=== PATIENT | female | born 1985 | race Caucasian/White ===

== ENCOUNTER 2019-10-11 08:56 | Inpatient (IN) | payer OTHER ==
[~2019-10-11] VITALS: Ht 172.7 cm; Wt 78.0 kg
[2019-10-16] MEDS: D5%-LACTATED RINGERS 1,000 ML IV SCH ×3 (06:14→22:14)
[2019-10-16] MEDS ORDERED: OXYTOCIN 30U/ 0.9% NaCL 500ML 500 ML IV ONE (06:14)
[2019-10-16] MEDS ORDERED: SODIUM CHLORIDE FLUSH 10ML SYR IVF PRN (06:30)
[2019-10-16] MEDS ORDERED: FENTANYL PF 100 MCG/2ML IVPush PRN (06:30)
[2019-10-16] MEDS ORDERED: PLEASE ENTER HEIGHT AND WEIGHT MC SCH (06:30)
[2019-10-16] MEDS ORDERED: METOCLOPRAMIDE 5 MG/ML, 2ML IVPush PRN (06:30)
[2019-10-16] MEDS ORDERED: ONDANSETRON 2MG/ML, 2ML IVPush PRN (06:30)
[2019-10-16] MEDS ORDERED: TERBUTALINE 1 MG/ML, 1ML SQ PRN (06:30)
[2019-10-16] MEDS ORDERED: TERBUTALINE 1 MG/ML, 1ML IVPush PRN (06:30)
[2019-10-16] MEDS ORDERED: FENTANYL PF 100 MCG/2ML IV PRN (06:30)
[2019-10-16] MEDS ORDERED: ALUMINUM/MAG/SIMETHICONE 30 ML UDC PO PRN (06:30)
[2019-10-16] MEDS ORDERED: SODIUM CITRATE/CITRIC ACID 30 ML UDC PO PRN (06:30)
[2019-10-16 06:34] VITALS: BP 104/64
[2019-10-16 06:44] LABS: BASOPHILS # (AUTO) 0.01 x10^3/uL (0-0.1); BASOPHILS % (AUTO) 0 % (0-1); EOSINOPHILS # (AUTO) 0.39 x10^3/uL (0-0.4); EOSINOPHILS % (AUTO) 3 % (1-7); LYMPHOCYTES # (AUTO) 2.03 x10^3/uL (1-3.4); LYMPHOCYTES % (AUTO) 15 % (22-44); MD NO; MEAN CORPUSCULAR HEMOGLOBIN 28.1 pg (27.0-34.8); MEAN CORPUSCULAR VOLUME 85.1 fL (80-100); MEAN PLATELET VOLUME 8.6 fL (7.4-10.4); MONOCYTES # (AUTO) 0.62 x10^3/uL (0.2-0.8); MONOCYTES % (AUTO) 5 % (2-9); NEUTROPHILS % (AUTO) 77 % (42-75); PLATELET COUNT 354 x10^3/uL (130-400); RED BLOOD COUNT 4.39 x10^6/uL (3.82-5.3); RED CELL DISTRIBUTION WIDTH 14.1 % (9.6-15.2)
[2019-10-16] MEDS: LACTATED RINGERS 1,000 ML IV SCH ×3 (06:47→22:14)
[2019-10-16] MEDS ORDERED: OXYTOCIN 30U/ 0.9% NaCL 500ML 500 ML IV PRN (07:15)
[2019-10-16] MEDS ORDERED: CALCIUM CARBONATE 500 MG TAB.CHEW ONE ×3 (07:33→18:13)
[2019-10-16] MEDS: CALCIUM CARBONATE 500 MG TAB.CHEW PO PRN ×3 (07:35→18:14)
[2019-10-16] MEDS ORDERED: ALUMINUM/MAG/SIMETHICONE 30 ML UDC ONE (09:07)
[2019-10-16] MEDS ORDERED: FENTANYL/BUPIV./NS/PF 250 ML EPIDCONT SCH ×2 (15:22→16:34)
[2019-10-16] MEDS ORDERED: LACTATED RINGERS 1,000 ML IVBOLUS PRN ×2 (15:30→17:00)
[2019-10-16] MEDS ORDERED: BUPIVACAINE 0.25% ONE ×2 (16:13→17:19)
[2019-10-16] MEDS ORDERED: LACTATED RINGERS 1,000 ML IV SCH (16:34)
[2019-10-16] MEDS ORDERED: EPHEDRINE 50 MG/ML, 1ML IVPush PRN (17:00)
[2019-10-16 19:34] VITALS: BP 114/63
[2019-10-16] MEDS: OXYTOCIN 30U/ 0.9% NaCL 500ML 500 ML IV SCH (20:59)
[2019-10-16] MEDS ORDERED: CALCIUM CARBONATE 500 MG TAB.CHEW PO PRN (21:00)
[2019-10-16] MEDS ORDERED: ONDANSETRON 2MG/ML, 2ML IV PRN (21:00)
[2019-10-16] MEDS ORDERED: OXYcodone/APAP 5/325MG TABLET PO PRN (21:00)
[2019-10-16] MEDS ORDERED: SIMETHICONE 80 MG CHEW TAB PO PRN (21:00)
[2019-10-16] MEDS ORDERED: MISOPROSTOL 200 MCG TABLET PR PRN (21:00)
[2019-10-16] MEDS ORDERED: METHYLERGONOVINE 0.2 MG/ML IM PRN (21:00)
[2019-10-16 23:30] VITALS: BP 110/61
[2019-10-17] MEDS: IBUPROFEN 600 MG TABLET PO PRN ×4 (00:36→21:38)
[2019-10-17] MEDS: DOCUSATE 100 MG CAPSULE PO PRN ×3 (00:37→21:38)
[2019-10-17 04:58] VITALS: BP 108/73
[2019-10-17 05:10] LABS: BASOPHILS # (AUTO) 0.08 x10^3/uL (0-0.1); BASOPHILS % (AUTO) 0 % (0-1); EOSINOPHILS # (AUTO) 0.05 x10^3/uL (0-0.4); EOSINOPHILS % (AUTO) 0 % (1-7); LYMPHOCYTES # (AUTO) 2.47 x10^3/uL (1-3.4); LYMPHOCYTES % (AUTO) 14 % (22-44); MD NO; MEAN CORPUSCULAR HEMOGLOBIN 28.2 pg (27.0-34.8); MEAN CORPUSCULAR HGB CONC 33.1 g/dL (32.4-35.8); MEAN PLATELET VOLUME 8.4 fL (7.4-10.4); MONOCYTES # (AUTO) 1.03 x10^3/uL (0.2-0.8); MONOCYTES % (AUTO) 6 % (2-9); NEUTROPHILS # (AUTO) 13.68 x10^3/uL (1.8-6.8); NEUTROPHILS % (AUTO) 79 % (42-75); PLATELET COUNT 296 x10^3/uL (130-400); RED BLOOD COUNT 4.07 x10^6/uL (3.82-5.3); RED CELL DISTRIBUTION WIDTH 14.2 % (9.6-15.2)
[2019-10-17] MEDS: D5%-LACTATED RINGERS 1,000 ML IV SCH (06:14)
[2019-10-17] MEDS: LACTATED RINGERS 1,000 ML IV SCH (06:14)
[2019-10-17] MEDS: OXYTOCIN 30U/ 0.9% NaCL 500ML 500 ML IV SCH ×2 (06:59→16:59)
[2019-10-17] MEDS: PRENATAL VIT/IRON/FA 1 EACH TABLET PO SCH (07:53)
[2019-10-17 08:01] VITALS: BP 104/67
[2019-10-17] MEDS ORDERED: HEMORRHOIDAL OINT, 28 GM (PREP H) RC PRN (10:30)
[2019-10-17 12:04] VITALS: BP 110/72
[2019-10-17 16:20] VITALS: BP 119/74
[2019-10-17 21:15] VITALS: BP 118/67
[2019-10-18] MEDS: OXYTOCIN 30U/ 0.9% NaCL 500ML 500 ML IV SCH (02:59)
[2019-10-18 07:55] VITALS: BP 114/67
[2019-10-18] MEDS: PRENATAL VIT/IRON/FA 1 EACH TABLET PO SCH (08:56)
[2019-10-18] MEDS: IBUPROFEN 600 MG TABLET PO PRN (08:56)
[2019-10-18] MEDS: DOCUSATE 100 MG CAPSULE PO PRN (08:57)
[2019-10-18] MEDS ORDERED: MEASLES,MUMPS&RUBELLA VACC/PF 0.5 ML SQ-VACC ONE ×2 (09:00→14:28)
[2019-10-18] MEDS ORDERED: IBUP-1222 PO (13:22)
== END 2019-10-18 14:50 | disposition home or self-care (01) | DRG 806 ==
LOC: LDIP 10-16 06:08 → 2NW 10-16 23:00
PROVIDERS: ADMIT Student in an Organized Health Care Education/Training Program; ATTEND Student in an Organized Health Care Education/Training Program
PROC: 10E0XZZ Delivery of Products of Conception, External Approach (ICD-10-PCS; principal; 2019-10-16)
PROC: 10907ZC Drainage of Amniotic Fluid, Therapeutic from Products of Conception, Via Natural or Artificial Opening (ICD-10-PCS; 2019-10-16)
PROC: 3E033VJ Introduction of Other Hormone into Peripheral Vein, Percutaneous Approach (ICD-10-PCS; 2019-10-16)
PROC: 0HQ9XZZ Repair Perineum Skin, External Approach (ICD-10-PCS; 2019-10-16)
PROC: 3E0R3BZ Introduction of Anesthetic Agent into Spinal Canal, Percutaneous Approach (ICD-10-PCS; 2019-10-16)
PROC: 00HU33Z Insertion of Infusion Device into Spinal Canal, Percutaneous Approach (ICD-10-PCS; 2019-10-16)
PROC: 3E0134Z Introduction of Serum, Toxoid and Vaccine into Subcutaneous Tissue, Percutaneous Approach (ICD-10-PCS; 2019-10-18)
DX: O77.0 Labor and delivery complicated by meconium in amniotic fluid (principal); C85.90 Non-Hodgkin lymphoma, unspecified, unspecified site; Z37.0 Single live birth; O99.284 Endocrine, nutritional and metabolic diseases complicating childbirth; Z3A.40 40 weeks gestation of pregnancy; E78.00 Pure hypercholesterolemia, unspecified; Z23 Encounter for immunization; O26.893 Other specified pregnancy related conditions, third trimester; O48.0 Post-term pregnancy; O70.0 First degree perineal laceration during delivery; Z80.3 Family history of malignant neoplasm of breast; Z82.49 Family history of ischemic heart disease and other diseases of the circulatory system; Z80.41 Family history of malignant neoplasm of ovary
CPT/HCPCS: 36415; 85025; 86592; 86850; 86900; G0378; J2590; J3010; J7120